=== PATIENT | female | born 1940 | race Caucasian/White ===

== ENCOUNTER 2020-08-08 14:18 | Outpatient (REF) | payer OTHER, SELFPAY ==
--- NOTE | ~2020-08-08 | XR_ITS ---
EXAMINATION: XR CHEST CLINICAL INFORMATION: COPD COMPARISON: None TECHNIQUE: 2 views of the chest were obtained. FINDINGS: The cardiac and mediastinal contours are normal. There is question of a 4 mm right pulmonary nodule. This overlies the right posterior eighth rib on the PA view. The lungs are otherwise clear. There is no pleural effusion or pneumothorax. There are degenerative changes of the spine. XR/XR chest 2V IMPRESSION: Question small 4 mm pulmonary nodule at the right lung base.
== END 2020-08-08 14:19 | disposition home or self-care (01) ==
LOC: HO.XRAY 14:18
PROVIDERS: PCP Nurse Practitioner Family; Visit Provider Hospitalist
DX: J44.9 Chronic obstructive pulmonary disease, unspecified (principal)
CPT/HCPCS: 71046; 99212

== ENCOUNTER 2020-09-11 14:32 | Outpatient (REF) | payer OTHER, SELFPAY ==
--- NOTE | ~2020-09-11 | CT_ITS ---
EXAMINATION: CT CHEST WITHOUT CONTRAST CLINICAL INFORMATION: Pulmonary nodule COMPARISON: Previous chest x-ray 08/08/2020 TECHNIQUE: Multidetector volumetric CT imaging of the chest was done. Axial MIP volume rendering provided. Sagittal and coronal reformatted images were obtained. This CT examination was performed using dose optimization techniques as appropriate, variously including the following: *Automated exposure control *Adjustment of mA and/or kV according to patient size (this includes techniques or standardized protocols for targeted exams where dose is matched to indication/reason for exam; i.e. 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 Eventration right hemidiaphragm. LUNGS: Exam is limited due to artifact from respiratory motion. There is volume loss to the left upper lobe. There is linear scarring or subsegmental atelectasis at the left lung apex. There are several small calcified left upper lobe nodules, largest measuring 3 mm. There is a 3 mm noncalcified peripheral or subpleural right upper lobe nodule adjacent to the major fissure axial image 222 series 4. This probably represents a subpleural lymph node. There is a 2 x 5 mm calcified right lower lobe nodule axial image 286 series 4. There is linear scarring or subsegmental atelectasis in the inferior segment of the lingula. MEDIASTINUM: There is mild coronary artery calcification. The mediastinum is otherwise normal. PLEURA: There is no pleural effusion. No pleural mass or thickening. AXILLA: No lymphadenopathy. UPPER ABDOMEN: Unremarkable. OSSEOUS STRUCTURES: There are degenerative changes of the spine. CT/CT chest wo con IMPRESSION: Limited exam due to artifact from respiratory motion. Left upper lobe volume loss. Small calcified pulmonary nodules probably representing calcified granulomas. Mild coronary artery calcification.
== END 2020-09-11 14:33 | disposition home or self-care (01) ==
LOC: HO.CT 14:32
PROVIDERS: Visit Provider Hospitalist
DX: R91.1 Solitary pulmonary nodule (principal)
CPT/HCPCS: 71250

== ENCOUNTER → 2020-10-21 14:57 | Outpatient (BNVA) | payer OTHER, SELFPAY | PROVIDERS: PCP Nurse Practitioner Family; Visit Provider Hospitalist | DX: R91.1 Solitary pulmonary nodule (principal); J41.0 Simple chronic bronchitis | CPT/HCPCS: 99212 ==

== ENCOUNTER → 2021-04-22 14:20 | Outpatient (BNVA) | payer MEDICARE, SELFPAY | PROVIDERS: PCP Nurse Practitioner Family; Visit Provider Hospitalist | DX: J41.0 Simple chronic bronchitis (principal); R91.1 Solitary pulmonary nodule | CPT/HCPCS: 99212 ==

== ENCOUNTER 2022-04-06 15:42 | Outpatient (REF) | payer OTHER, SELFPAY ==
--- NOTE | ~2022-04-06 | CT_ITS ---
EXAMINATION: CT CHEST WITHOUT CONTRAST CLINICAL INFORMATION: Follow-up pulmonary nodule COMPARISON: Previous chest CT August 2020 TECHNIQUE: Multidetector volumetric CT imaging of the chest was done. Axial MIP volume rendering provided. Sagittal and coronal reformatted images were obtained. This CT examination was performed using dose optimization techniques as appropriate, variously including the following: *Automated exposure control *Adjustment of mA and/or kV according to patient size (this includes techniques or standardized protocols for targeted exams where dose is matched to indication/reason for exam; i.e. 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 There is linear scarring or chronic subsegmental atelectasis at the left lung apex and several clustered calcified and noncalcified nodules largest measuring 3 mm axial image 81 series 5 that is stable. There is a 6 mm calcified right lower lobe nodule axial image 257 series 5 that is stable. Evaluation of the lung bases is limited due to artifact from respiratory motion. MEDIASTINUM: The mediastinum is normal. CORONARY ARTERY CALCIFICATION: Mild PLEURA: There is no pleural effusion. No pleural mass or thickening. AXILLA: No lymphadenopathy. UPPER ABDOMEN: Left renal stone. OSSEOUS STRUCTURES: Degenerative changes of the spine. CT/CT chest wo IV con IMPRESSION: Stable scarring and volume loss of the left lung apex. Stable pulmonary nodules. Fleischner guidelines were followed.
== END 2022-04-06 15:43 | disposition home or self-care (01) ==
LOC: HO.CT 15:42
PROVIDERS: Visit Provider Hospitalist
DX: R91.1 Solitary pulmonary nodule (principal)
CPT/HCPCS: 71250

== ENCOUNTER → 2022-05-18 14:31 | Outpatient (BNVA) | payer OTHER, SELFPAY | PROVIDERS: Visit Provider Hospitalist | DX: R91.1 Solitary pulmonary nodule (principal); J41.0 Simple chronic bronchitis | CPT/HCPCS: 99212 ==

== ENCOUNTER 2023-11-16 15:01 | Outpatient (AMB) | payer OTHER, SELFPAY ==
[2023-11-16 15:13] VITALS: PULSE 80; O2SAT 98; BMI 22.3
--- NOTE | 2023-11-16 15:13 | MHC.OFFVIS ---
Vital Signs 11/16/23 15:13 Height 5 ft 5 in Weight 134 lb BMI 22.3 Pulse 80 Pulse Source Pulse Oximeter Pulse Oximetry (%) 98 Oxygen Delivery Method Room Air Intake Visit Reasons: Cough Allergies No Known Allergies Allergy (Verified 11/16/23 15:15) HPI Comments Details: The patient is a 83-year-old gentleman known COPD in addition to chronic rhinitis. Been doing well since we last spoke. However, back in July started having worsening respiratory symptoms. He went to the ER to be evaluated. There he had an x-ray demonstrating stable calcified pulmonary nodules consistent with granulomas. Also had blood work. Was treated and discharged. He did not need hospitalization. We have look at previous hospitalizations even back in 2017 where needed ICU level of care because of the flu and post flu pneumonia. He has been complaining for the last week or 2 increasing shortness of breath with activity. Also chest tightness [id number] severity. He does not have any further inhalers that he can use for this. 08/08/2020 the patient is here for pulmonary follow-up visit. Overall the patient has been doing a little better. Appears to be responded very well to the Anoro. Denies any significant shortness of breath. He still gets congested at times. He does have a cough intermittently. [id number] severity. He has daughter has noticed that his appetite is less. Sometimes the only thing he is taking his ensure. Therefore also noticed weight loss. He currently is following up with a new primary care provider a nury jimenez. A total does a very good place. In the meantime with the weight loss in his respiratory issues on have a chest x-ray today. He did have blood work at [facility] demonstrating some mild anemia. He will follow-up with his primary care doctor regarding his blood work. Continue with current respiratory therapy. We did try to get him an appointment for his COVID-19 vaccination. However, the patient is not able to set up an appointment now because of this face 2 and a lot more people looking for vaccinations and now no available spots available for him. We do have a waiting list and will add in to a waiting list for him to get vaccinated. 04/22/2021 the patient is here for pulmonary follow-up visit. Overall he is doing much better. He is responding well to the Anoro. Does have a rescue inhaler that he does not require as often. It appears that his weight is improving without any further weight loss. He did have a chest x-ray demonstrating slight density in therefore we followed up with a CT scan. I personally reviewed the CT scan that he had in August 2020 demonstrating small subcentimeter pulmonary nodules some of the calcified. At this point continue having some yearly CAT scans to make sure stability of the nodules. No other significant findings noted. 05/18/2022 the patient is here for a pulmonary follow-up visit. Overall the patient is doing well. He is responding well to the Anoro inhaler. He does use it once a day in the morning. He has not had to use his rescue inhaler. He stays active. Denies any respiratory limitations at this time. We did review his most recent CT scan of the chest. He does have some calcifications of the coronary arteries. The patient also has some underlying pulmonary nodules which appear to be stable when compared to previous CT scans. Patient also has a new mild scarring primarily in the upper lung zones. This point everything looks stable. No further imaging studies warranted at this time in view of the benign findings. However, the patient develops any worsening symptoms then a reasonable to we address those findings. Otherwise patient is without any other complaints. Follow-up in a year's time. 11/16/2023 the patient is here for a pulmonary follow-up visit. The patient is doing very well. He has had more issues with his memory with significant dementia. He is oriented to person. The patient is here with his daughter. The patient has been on the Anoro inhaler for many years. Seems to be affecting beneficial. He also has a rescue inhaler. He does have it available and knows how to use it but he has not required. The patient has been had any imaging studies.. However, in view of his significant advanced dementia and the fact that he is fairly asymptomatic will hold off on doing additional imaging studies. If however he develops any worsening respiratory symptoms additional imaging studies will be warranted. [facility] Medical History (Updated 10/21/20 @ 23:19 by George Ortiz MD) Pulmonary nodule COPD (chronic obstructive pulmonary disease) Social History (Updated 04/22/21 @ 14:34 by ELVIA Bateman) Patient Tobacco Use Status: Former Tobacco user Tobacco use type: Cigarette Years Smoked: 20 years Review of Systems Const Denies night sweats and Denies weight loss ENT Denies change in voice, Denies lip swelling, Denies mouth pain, Denies nasal congestion, Denies nasal discharge and Denies tongue swelling Card Denies chest pain Resp Denies cough GI Denies abdominal pain Musc Denies no additional complaints Neuro Denies Neuro-related abnormal movements and Reports memory loss Psych Denies no additional complaints and Reports memory loss Adrián/Lymph Denies easy bleeding and Denies lymphadenopathy Aller/Immun Denies lip swelling and Denies tongue swelling Physical Exam Vital Signs: Last Vital Signs Pulse 80 11/16/23 15:13 Pulse Ox 98 11/16/23 15:13 Oxygen Delivery Method Room Air 11/16/23 15:13 BMI result Body Mass Index 22.3 Const General: alert Neck Neck: Yes normal visual inspection, Yes full ROM and Yes no lymphadenopathy Chest Chest palpation & inspection: normal inspection of the chest Resp Auscultation: diminished lung sounds Cardio Rate: regular rate Rhythm: regular rhythm Heart sounds: S1 normal heart sound present and S2 normal heart sound present GI Palpation (GI): Soft to palpation and nontender Auscultation: normal bowel sounds Skin General skin exam: rashes and/or lesions noted Assessment & Plan Assessment & Plan (1) Pulmonary nodule: Code(s): R91.1 - Solitary pulmonary nodule Category: Medical (2) COPD (chronic obstructive pulmonary disease): Code(s): J44.9 - Chronic obstructive pulmonary disease, unspecified Category: Medical Qualifiers: COPD type: chronic bronchitis Chronic bronchitis type: simple Qualified Code(s): J41.0 - Simple chronic bronchitis Plan continue Anoro ELÍAS as needed F/U 1 yr Medications: Changed From umeclidinium-vilanterol 62.5-25 mcg/actuation (Anoro Ellipta) 1 ea PO DAILY 60 ea 11RF To umeclidinium-vilanterol 62.5-25 mcg/actuation (Anoro Ellipta) 1 ea inhalation DAILY 60 ea 11RF 30 days Coding Level of Care Code Est Pt Level 4 (11773) Diagnoses Pulmonary nodule R91.1 Simple chronic bronchitis J41.0 COPD type: chronic bronchitis Chronic bronchitis type: simple Time Spent (min) 15
== END 2023-11-16 15:24 | disposition home or self-care (01) ==
PROVIDERS: Visit Provider Hospitalist
DX: R91.1 Solitary pulmonary nodule (principal); J41.0 Simple chronic bronchitis
CPT/HCPCS: 99214

== ENCOUNTER → 2023-11-16 15:01 | Outpatient (BNVA) | payer OTHER, SELFPAY | PROVIDERS: Visit Provider Hospitalist | DX: J41.0 Simple chronic bronchitis (principal); R91.1 Solitary pulmonary nodule | CPT/HCPCS: 99212 ==